=== PATIENT | female | born 1970 | race Caucasian/White ===

== ENCOUNTER 2017-05-31 09:00 | Emergency (ER) | payer OTHER ==
[~2017-05-31] VITALS: Ht 160 cm; Wt 104.3 kg
[~2017-05-31 09:00] MED LIST: ACETAMINOPHEN-1 EAC1 PO; ASPIR 8181 MG PO; DUONEB 2.5-0.5 M3 ML INH; FLOVENT HFA 1110 MCG INH; LEVAQUIN 500 M500 M2 PO; PREDNISONE 10 M10 MG PO; PREDNISONE50 MG PO; PROAIR HFA8.5 GM INH; VENTOLIN HFA 1818 GM INH
[2017-05-31] MEDS ORDERED: TYLENOL EXTRA500 MG PO (09:13)
[2017-05-31] MEDS ORDERED: ZPAK PO (09:31)
[2017-05-31] MEDS ORDERED: PREDNISONE 20 M20 M1 PO (09:31)
[2017-05-31] MEDS ORDERED: VENTOLIN HFA 1818 GM INH (09:31)
[2017-05-31 09:50] VITALS: BP 164/94
== END 2017-05-31 09:52 | disposition home or self-care (01) ==
LOC: M.ERS 09:00
DX: J45.901 Unspecified asthma with (acute) exacerbation (principal); J44.9 Chronic obstructive pulmonary disease, unspecified; Z90.49 Acquired absence of other specified parts of digestive tract; I21.9 Acute myocardial infarction, unspecified; Z87.891 Personal history of nicotine dependence